=== PATIENT | female | born 1995 | race Two or more races ===

== ENCOUNTER 2021-07-04 10:28 | Emergency (ER) | payer SELFPAY ==
[~2021-07-04] VITALS: Ht 152.4 cm; Wt 63.5 kg
[2021-07-04 10:47] VITALS: BP 113/81
[2021-07-04] MEDS ORDERED: AMOX-277 PO (11:04)
[2021-07-04] MEDS ORDERED: PROM1SOL4 PO (11:04)
== END 2021-07-04 11:10 | disposition home or self-care (01) ==
LOC: ER 10:28
DX: H66.92 Otitis media, unspecified, left ear (principal); J04.0 Acute laryngitis